=== PATIENT | female | born 1960 | race Caucasian/White ===

== ENCOUNTER 2021-12-28 13:57 | Emergency (ER) | payer OTHER ==
[~2021-12-28 13:57] MED LIST: ATARAX25 MG PO; CLEOCIN300 MG PO; CYMBALTA60 MG PO; FLEXERIL10 MG PO; GLIMEPIRIDE4 MG PO; HYDROCODON-ACE1 EAC2 PO; IBUPROFEN800 MG PO; LISINOPRIL-HCT1 EAC2 PO; METFORMIN HCL500 MG PO; PEPCID AC20 MG PO; TOPROL XL 25MG25 MG PO; VICTOZA 3-0.6 MG/0.1 SC
[2021-12-28 15:57] LABS: BASOPHIL 0.8 % (0-2); EOSINOPHIL 2.3 % (0-5); HCT 40.7 % (37.0-47.0); HGB 13.6 g/dl (12.5-16.0); LYMPHOCYTE 30.3 % (15-48); MCH 28.6 pg (25.0-31.0); MCHC 33.4 g/dL (32.0-36.0); MCV 85.5 fL (78.0-100.0); MPV 11.1 fL (6.0-9.5); NEUTROPHIL 56.8 % (41-80); NRBC 0; PLT 245 K/uL (150-400); RBC 4.76 M/uL (4.20-5.40); RDW 13.1 % (11.5-14.0); WBC 8.6 K/uL (4.0-10.5)
[2021-12-28 16:28] LABS: ALBUMIN 3.9 g/dL (3.4-5.0); BILIRUBIN - TOTAL 0.5 mg/dL (0.2-1.0); CREATININE 0.89 mg/dL (0.51-0.95); POTASSIUM 3.4 mmol/L (3.5-5.1); TOTAL PROTEIN 8.9 g/dL (6.4-8.2)
[2021-12-28] MEDS ORDERED: CLEOCIN300 MG PO (17:21)
== END 2021-12-28 17:28 | disposition home or self-care (01) ==
LOC: FER 13:57
PROVIDERS: Physician Assistant
DX: L03.032 Cellulitis of left toe (principal); I10 Essential (primary) hypertension; E11.40 Type 2 diabetes mellitus with diabetic neuropathy, unspecified; Z79.4 Long term (current) use of insulin; Z79.899 Other long term (current) drug therapy; Z79.84 Long term (current) use of oral hypoglycemic drugs
CPT/HCPCS: 36415; 73630; 80053; 85025